=== PATIENT | male | born 2005 | race Caucasian/White ===

== ENCOUNTER 2023-02-22 23:14 | Emergency (ER) | payer BC ==
[2023-02-23] MEDS ORDERED: Triple Antibiotic Oint 1 GM Packet ONE (00:39)
== END 2023-02-23 00:42 | disposition home or self-care (01) ==
LOC: CSHERS 23:14
DX: S81.812A Laceration without foreign body, left lower leg, initial encounter (principal); W22.8XXA Striking against or struck by other objects, initial encounter
CPT/HCPCS: 12002